=== PATIENT | female | born 1985 | race Caucasian/White ===

== ENCOUNTER 2018-06-15 18:12 | Emergency (ER) | payer MEDICARE, MEDICAID ==
[~2018-06-15] VITALS: Ht 154.9 cm; Wt 56.2 kg
--- NOTE | ~2018-06-15 | EKG ---
[place], [place] ELECTROCARDIOGRAM REPORT NAME: KAM MCGRATH UNIT #: [id number] ROOM: DOCTOR: EPIPHANY DRAFT REPORT BIRTHDATE: [birth year] [facility] Test Date: 2018-06-15 Test Time: 18:42:17 Pat Name: KAM MCGRATH Department: ER Room: 17 Gender: F Stereo Equipment Installer: Heena Mcpherson : 1985 Requested By: KAYLIN LÓPEZ PA-C Order Number: [id number] Reading MD: Spencer Black MD Measurements Intervals [place] Rate: 68 P: 31 [place]: 143 QRS: 30 QRSD: 82 T: 32 QT: 429 QTc: 457 Interpretive Statements Sinus rhythm Nonspecific ST T changes Electronically Signed On 06-19-2018 9:07:13 PDT by Spencer Black MD CM:EKGRPT:ELECTROCARDIOGRAM REPORT [id number] KAYLIN LÓPEZ PA-C EPIPHANY DRAFT REPORT KAYLIN LÓPEZ PA-C
[~2018-06-15 18:12] MED LIST: ANUSOL-HC25 MG RC; AUGMENTIN 875875 MG PO; BACTRIM DS 8001 TA1 PO; BENADRYL25 MG PO; DICYCLOMINE HCL20 MG PO; FLAGYL500 MG PO; GYNE-LOTRIMIN 31 KIT VG; HYDROCODONE BIT1 T11 PO; MACROBID100 M1 PO; Miralax Powder255 GM PO; NICOTINE T21 MG/24 H T; NKHM; NYSTATIN OINTME30 GM; ONDANSETRON HYDR4 M1 PO; ONDANSETRON4 MG PO; OXYBUTYNIN5 MG PO; PHENYTOIN SODI100 M3 PO; PYRIDIUM200 MG PO; ROBAXIN750 MG PO; SINEMET 25-100M1 TAB PO; Septra Ds 800 M1 TAB PO; THERA1 TAB PO; VIBRAMYCIN100 MG PO; VICODIN 5/500 505 MG PO; VISTARIL50 MG PO; ZITHROMAX Z PA250 MG; ZOFRAN ODT4 MG SL; Zofran4 MG PO
[2018-06-15 18:48] LABS: BASO % 0.5 % (0.0-1.0); EOS # 0.1 10*3/uL (0.0-0.4); EOS % 1.1 % (1.0-4.0); HEMOGLOBIN 14.2 g/dl (12.0-16.0); LYMPH # 1.5 10*3/uL (1.3-4.4); LYMPH % 17.2 % (27.0-41.0); MEAN CELL VOLUME 95.5 fl (81.0-99.0); MEAN CORPUSCULAR HGB 32.3 pg (27.0-31.0); MEAN CORPUSCULAR HGB CONC 33.8 g/dl (33.0-37.0); MEAN PLATELET VOLUME 9.4 fl (9.6-12.3); MONO # 0.5 10*3/uL (0.1-1.0); MONO % 5.3 % (3.0-9.0); NEUT # 6.4 10*3/uL (2.3-7.9); NEUT % 75.5 % (47.0-73.0); PLATELET COUNT AUTOMATED 214 10*3/uL (130-400); RED CELL DISTRI WIDTH 11.9 % (0-14.5); WHITE BLOOD COUNT 8.5 10*3/uL (4.8-10.8)
[2018-06-15 18:53] LABS: BILIRUBIN NEGATIVE (NEGATIVE); BLOOD TRACE-LYSED (NEGATIVE); CLARITY CLEAR (CLEAR); COLOR YELLOW (YELLOW); GLUCOSE NEGATIVE (NEGATIVE); KETONE NEGATIVE (NEGATIVE); LEUKO ESTERASE NEGATIVE (NEGATIVE); NITRITE NEGATIVE (NEGATIVE); SPECIFIC GRAVITY 1.015 (1.005-1.030)
[2018-06-15 18:58] LABS: ACT PARTIAL THROMBO TIME 22.1 SECONDS (20.8-31.5)
[2018-06-15 19:04] LABS: URINE AMPHETAMINES < 1000 (1000ng/ml); URINE BARBITURATES < 200 (200ng/ml); URINE BENZODIAZEPINES < 200 (200ng/ml); URINE CANNABINOIDS (THC) < 50 (50ng/ml); URINE COCAINE < 300 (300ng/ml); URINE METHADONE < 300 (300ng/ml); URINE OPIATES < 300 (300ng/ml)
[2018-06-15 19:06] LABS: ALKALINE PHOSPHATASE 53 U/L (45-117); BUN 10 mg/dl (7-24); CHLORIDE 110 mmol/L (98-107); CREATININE 0.67 mg/dL (0.55-1.02); LIPASE 109 U/L (73-393); POTASSIUM 3.8 mmol/L (3.5-5.1); SGOT/AST 19 IU/L (3-35); SGPT/ALT 25 U/L (12-78); SODIUM 143 mmol/L (136-145); TOTAL PROTEIN 7.7 gm/dL (6.4-8.2)
[2018-06-15 19:09] LABS: URINE PHENCYCLIDINE < 25 (25ng/ml)
[2018-06-15 19:09] LABS: TROPONIN I < 0.015 ng/ml (<0.045)
[2018-06-15 19:24] LABS: BACTERIA 3+; RBC 0-2 rbc/hpf (0-2)
[2018-06-15] MEDS ORDERED: ZOFRAN ODT4 MG SL (20:44)
[2018-06-15] MEDS ORDERED: MIRALAX POWDER17 G1 PO (20:44)
== END 2018-06-15 20:53 | disposition home or self-care (01) ==
LOC: ED 18:12
PROVIDERS: Physician Assistant
DX: K59.00 Constipation, unspecified (principal); R11.2 Nausea with vomiting, unspecified; R42 Dizziness and giddiness; J45.909 Unspecified asthma, uncomplicated; G40.909 Epilepsy, unspecified, not intractable, without status epilepticus; F17.200 Nicotine dependence, unspecified, uncomplicated; Z88.8 Allergy status to other drugs, medicaments and biological substances; Z88.6 Allergy status to analgesic agent; Z98.51 Tubal ligation status

== ENCOUNTER 2018-07-24 19:21 | Emergency (ER) | payer MEDICARE, MEDICAID ==
[~2018-07-24] VITALS: Ht 160 cm; Wt 52.6 kg
[~2018-07-24 19:21] MED LIST changes: +MIRALAX POWDER17 G1 PO
[2018-07-24 19:47] LABS: BILIRUBIN NEGATIVE (NEGATIVE); BLOOD NEGATIVE (NEGATIVE); CLARITY SL CLOUDY (CLEAR); COLOR YELLOW (YELLOW); GLUCOSE TRACE (NEGATIVE); KETONE NEGATIVE (NEGATIVE); LEUKO ESTERASE NEGATIVE (NEGATIVE); NITRITE POSITIVE (NEGATIVE); UROBILINOGEN >= 8.0 E.U./dl (0.2-1.0)
[2018-07-24 20:02] LABS: BACTERIA 2+; EPITHELIAL CELLS 20-25; RBC 0-2 rbc/hpf (0-2)
[2018-07-24] MEDS ORDERED: CIPRO250 MG PO (20:03)
[2018-07-24] MEDS ORDERED: FLAGYL500 MG PO (20:03)
[2018-07-24] MEDS ORDERED: PYRIDIUM200 M1 PO (20:13)
[2018-07-24] MEDS ORDERED: CEFUROXIME AXE500 MG PO (20:13)
== END 2018-07-24 20:28 | disposition home or self-care (01) ==
LOC: ED 19:21
PROVIDERS: Nurse Practitioner Family
DX: N39.0 Urinary tract infection, site not specified (principal); F17.200 Nicotine dependence, unspecified, uncomplicated; Z88.8 Allergy status to other drugs, medicaments and biological substances

== ENCOUNTER 2019-04-20 16:44 | Inpatient (IN) | payer MEDICARE, MEDICAID ==
[~2019-04-20] VITALS: Ht 154.9 cm; Wt 53.7 kg
[2019-04-20 16:44] VITALS: BP 121/80
[~2019-04-20 16:44] MED LIST changes: +CEFUROXIME AXE500 MG PO; +CIPRO250 MG PO; +PYRIDIUM200 M1 PO
--- NOTE | 2019-04-20 17:31 | NUR ---
SEVERAL ATTEMPTS MADE FOR IV ACCESS AND LAB DRAW BY MORE THAN ONE NURSE AND ONE NATIONAL BUSINESS DIRECTOR . VALERIY COKER AND LAB AT BEDSIDE AT THIS TIME.
--- NOTE | 2019-04-20 17:34 | NUR ---
WILLIE B[place]INGHAM AWARE OF DIFFICULTY OBTAINING IV ACCESS AND LABS.
[2019-04-20 17:52] LABS: BASO % 0.6 % (0.0-1.0); EOS # 0.2 10*3/uL (0.0-0.4); EOS % 3.2 % (1.0-4.0); HEMATOCRIT 43.5 % (37.0-47.0); HEMOGLOBIN 14.6 g/dl (12.0-16.0); LYMPH # 1.9 10*3/uL (1.3-4.4); MEAN CELL VOLUME 95.2 fl (81.0-99.0); MEAN CORPUSCULAR HGB 31.9 pg (27.0-31.0); MEAN CORPUSCULAR HGB CONC 33.6 g/dl (33.0-37.0); MONO # 0.4 10*3/uL (0.1-1.0); MONO % 8.1 % (3.0-9.0); NEUT # 2.5 10*3/uL (2.3-7.9); NEUT % 50.1 % (47.0-73.0); PLATELET COUNT AUTOMATED 220 10*3/uL (130-400); RED BLOOD COUNT 4.57 10*6/uL (4.10-5.10); RED CELL DISTRI WIDTH 11.6 % (0-14.5); WHITE BLOOD COUNT 5.1 10*3/uL (4.8-10.8)
[2019-04-20 18:05] LABS: ACT PARTIAL THROMBO TIME 25.7 SECONDS (20.0-32.1)
[2019-04-20 18:12] LABS: ALBUMIN 3.9 gm/dl (3.1-4.5); ALKALINE PHOSPHATASE 53 U/L (45-117); BUN 7 mg/dl (7-24); CHLORIDE 106 mmol/L (98-107); CREATININE 0.71 mg/dL (0.55-1.02); LIPASE 72 U/L (73-393); POTASSIUM 4.1 mmol/L (3.5-5.1); SGOT/AST 30 IU/L (3-35); SGPT/ALT 26 U/L (12-78); SODIUM 139 mmol/L (136-145); TOTAL PROTEIN 7.8 gm/dL (6.4-8.2)
--- NOTE | 2019-04-20 18:22 | NUR ---
WILLIE DNP AWARE OF LA 2.3
[2019-04-20 18:36] LABS: BILIRUBIN NEGATIVE (NEGATIVE); BLOOD NEGATIVE (NEGATIVE); CLARITY CLEAR (CLEAR); COLOR YELLOW (YELLOW); GLUCOSE NEGATIVE (NEGATIVE); KETONE TRACE (NEGATIVE); LEUKO ESTERASE NEGATIVE (NEGATIVE); NITRITE NEGATIVE (NEGATIVE); PH 6.5 (5.0-9.0); SPECIFIC GRAVITY <= 1.005 (1.005-1.030); UROBILINOGEN 0.2 E.U./dl (0.2-1.0)
[2019-04-20 18:57] LABS: EPITHELIAL CELLS 51-100; WBC 0-2 wbc/hpf (0-5)
[2019-04-20 18:58] LABS: BACTERIA TRACE
[2019-04-20 19:19] LABS: URINE AMPHETAMINES < 1000 (1000ng/ml); URINE BARBITURATES < 200 (200ng/ml); URINE BENZODIAZEPINES < 200 (200ng/ml); URINE CANNABINOIDS (THC) < 50 (50ng/ml); URINE COCAINE < 300 (300ng/ml); URINE METHADONE < 300 (300ng/ml); URINE OPIATES < 300 (300ng/ml)
[2019-04-20 19:26] LABS: URINE PHENCYCLIDINE < 25 (25ng/ml)
[2019-04-20 20:55] VITALS: BP 110/73
--- NOTE | 2019-04-20 20:55 | NUR ---
REPORT RECEIVED FROMPETER LUONG [facility].
--- NOTE | 2019-04-20 20:55 | NUR ---
Time: 2054 A 33 year old FEMALE admitted to 5E under services of NEVAEH WEBB DO. Pt. arrived via wheel chair from ER. Chief complaint: NAUSEA AND VOMITING. AG HALL
--- NOTE | 2019-04-20 21:46 | NUR ---
SPOKE WITH DR CUEVAS ABOUT PATIENTS REQUEST FOR BENADRYL. WAITING FOR ORDERS AT THIS TIME.
--- NOTE | 2019-04-20 22:42 | NUR ---
PATIENT REQUESTING MEDICATION TO HELP HER SLEEP. RESTORIL ADMINISTERED PRESCRIBED. WILL MONITOR FOR EFFECTIVENESS.
--- NOTE | 2019-04-20 22:45 | NUR ---
PATIENT REFUSES TO DRINK ORAL CONTRAST FOR CT ABDOMEN/PELVIS.
--- NOTE | 2019-04-20 22:50 | NUR ---
DR CUEVAS CALLED, AWARE THAT PATIENT REFUSES TO DRINK ORAL CONTRAST FOR CT. "OK TO GET BEST STUDY WITH IV CONTRAST." WILL FOLLOW UP WITH FIRE EXTINGUISHER REPAIRER INSPECTOR.
--- NOTE | 2019-04-20 22:56 | NUR ---
CALLED RIM FIRE PRIMING OPERATOR AND MADE AWARE THAT PATIENT REFUSING ORAL CONTRAST AND THAT IV CONTRAST IS OK. WILL CALL WHEN READY.
--- NOTE | 2019-04-20 23:42 | NUR ---
PATIENT RESTING WITH EYES CLOSED. RESPITATIONS EASY AND UNLABORED ON ROOM AIR. CALL WANG WITHIN REACH.
--- NOTE | 2019-04-20 23:50 | NUR ---
PATIENT ESCORTED TO CT SCAN. PATIENT REFUSES TO HAVE CT SCAN DONE- DR CUVEAS AWARE.
[2019-04-21] VITALS: BP 107/66
--- NOTE | 2019-04-21 04:00 | NUR ---
24 HR chart check completed.
--- NOTE | 2019-04-21 04:46 | NUR ---
PATIENT RESTING WITH EYES CLOSED. RESPIRATIONS EASY AND UNLABORED ON ROOM AIR. BED LOCKED IN LOWEST POSITION. CALL WANG WITHIN REACH.
--- NOTE | 2019-04-21 06:13 | NUR ---
PATIENT C/O NAUSEA. ZOFRAN ADMINISTERED PRESCRIBED. WILL MONITOR FOR EFFECTIVENESS.
[2019-04-21 06:31] LABS: BASO % 0.7 % (0.0-1.0); EOS # 0.2 10*3/uL (0.0-0.4); EOS % 3.7 % (1.0-4.0); HEMATOCRIT 37.7 % (37.0-47.0); HEMOGLOBIN 12.6 g/dl (12.0-16.0); LYMPH # 2.2 10*3/uL (1.3-4.4); MEAN CELL VOLUME 93.5 fl (81.0-99.0); MEAN CORPUSCULAR HGB 31.3 pg (27.0-31.0); MEAN CORPUSCULAR HGB CONC 33.4 g/dl (33.0-37.0); MEAN PLATELET VOLUME 10.1 fl (9.6-12.3); MONO # 0.4 10*3/uL (0.1-1.0); MONO % 8.8 % (3.0-9.0); NEUT # 1.8 10*3/uL (2.3-7.9); NEUT % 38.6 % (47.0-73.0); PLATELET COUNT AUTOMATED 194 10*3/uL (130-400); RED BLOOD COUNT 4.03 10*6/uL (4.10-5.10); RED CELL DISTRI WIDTH 11.5 % (0-14.5); WHITE BLOOD COUNT 4.6 10*3/uL (4.8-10.8)
[2019-04-21 06:48] LABS: INTERNATIONAL NORM RATIO 1.1 (2.0-3.5)
[2019-04-21 06:59] LABS: ALBUMIN 3.2 gm/dl (3.1-4.5); BUN 6 mg/dl (7-24); CHLORIDE 112 mmol/L (98-107); CHOLESTEROL 115 mg/dL (<200); CREATININE 0.55 mg/dL (0.55-1.02); PHOSPHOROUS 2.9 mg/dL (2.5-4.9); POTASSIUM 3.4 mmol/L (3.5-5.1); SGOT/AST 17 IU/L (3-35); SGPT/ALT 21 U/L (12-78); SODIUM 144 mmol/L (136-145); TOTAL PROTEIN 6.1 gm/dL (6.4-8.2); TRIGLYCERIDES 49 mg/dl (<150); VLDL CHOLESTEROL 10 mg/dL (6-40)
[2019-04-21 07:05] LABS: ALKALINE PHOSPHATASE 45 U/L (45-117); HDL CHOLESTEROL 38 mg/dl (40-60); LDL CHOLESTEROL 67 mg/dL (9-159)
[2019-04-21 07:06] LABS: BETA-HCG, QUANT < 1.0 mIU/mL (1-3)
[2019-04-21 07:19] LABS: VITAMIN D, 25-HYDROXY 42.7 ng/mL (30-100)
--- NOTE | 2019-04-21 07:40 | NUR ---
NEW CONSULT CALLED TO DR CONNOLLY. NEW ORDER RECEIVED FOR PATIENT TO BE NPO, US ABDOMEN AND PELVIS AND CALL HIM WITH RESULTS WHEN COMPLETED.
[2019-04-21 08:00] VITALS: BP 98/60
[2019-04-21] MEDS ORDERED: KLONOPIN0.5 MG PO (09:44)
[2019-04-21] MEDS ORDERED: NEURONTIN800 MG PO (09:45)
--- NOTE | 2019-04-21 10:39 | NUR ---
MEDICATED WITH PO KLONOPIN ORDERED PER PT REQUEST FOR C/O ANXIETY.
--- NOTE | 2019-04-21 10:40 | NUR ---
MEDICATED WITH IV ZOFRAN ORDERED PER PT REQUEST FOR C/O NAUSEA.
[2019-04-21 12:00] VITALS: BP 105/69
--- NOTE | 2019-04-21 12:38 | NUR ---
MEDICATED WITH PO TYLENOL ORDERED PER PT REQUEST FOR C/O HEADACHE RATED 5/10. MEDICATION EFFECTIVE FOR NAUSEA AND ANXIETY.
--- NOTE | 2019-04-21 14:30 | NUR ---
DR WEBSTER ASKED ABOUT PT EATING SOLID FOOD PER HER REQUEST, BUT HE'S WANTING TO WAIT FOR US RESULT. RN CALLED RADIOLOGY...THEY ARE UNSURE WHEN THE US WILL BE READ. PT INFORMED OF RATIONALE, BUT REMAINS FLAT AND UNHAPPY. SHE STATES SHE MAY DECIDE TO LEAVE. DR WEBSTER AWARE.
[2019-04-21 16:00] VITALS: BP 111/71
--- NOTE | 2019-04-21 16:00 | NUR ---
MEDICATION EFFECTIVE FOR HEADACHE.
--- NOTE | 2019-04-21 18:48 | NUR ---
MEDICATED WITH PO BENEDRYL ORDERED PER PT REQUEST FOR C/O ANXIETY.
[2019-04-21 20:00] VITALS: BP 94/59
--- NOTE | 2019-04-21 21:37 | NUR ---
PATIENT REQUESTING MEDICATION FOR SLEEP. RESTORIL ADMINISTERED PRESCRIBED. WILL MONITOR FOR EFFECTIVENESS.
--- NOTE | 2019-04-21 22:37 | NUR ---
PATIENT RESTING WITH EYES CLOSED AT THIS TIME. BED LOCKED IN LOWEST POSITION. CALL LIGHT WITHIN REACH.
[2019-04-22] VITALS: BP 89/52; BP 98/56
[2019-04-22 07:02] LABS: BASO % 0.4 % (0.0-1.0); EOS # 0.2 10*3/uL (0.0-0.4); EOS % 3.3 % (1.0-4.0); HEMATOCRIT 40.4 % (37.0-47.0); HEMOGLOBIN 13.3 g/dl (12.0-16.0); LYMPH # 1.5 10*3/uL (1.3-4.4); LYMPH % 31.7 % (27.0-41.0); MEAN CELL VOLUME 94.8 fl (81.0-99.0); MEAN CORPUSCULAR HGB 31.2 pg (27.0-31.0); MEAN CORPUSCULAR HGB CONC 32.9 g/dl (33.0-37.0); MEAN PLATELET VOLUME 10.1 fl (9.6-12.3); MONO # 0.4 10*3/uL (0.1-1.0); MONO % 8.5 % (3.0-9.0); NEUT # 2.7 10*3/uL (2.3-7.9); NEUT % 55.9 % (47.0-73.0); PLATELET COUNT AUTOMATED 201 10*3/uL (130-400); RED BLOOD COUNT 4.26 10*6/uL (4.10-5.10); RED CELL DISTRI WIDTH 11.7 % (0-14.5); WHITE BLOOD COUNT 4.8 10*3/uL (4.8-10.8)
[2019-04-22 07:29] LABS: BUN 6 mg/dl (7-24); CHLORIDE 112 mmol/L (98-107); CREATININE 0.63 mg/dL (0.55-1.02); POTASSIUM 3.4 mmol/L (3.5-5.1); SODIUM 143 mmol/L (136-145)
--- NOTE | 2019-04-22 07:47 | NUR ---
24 HR chart check completed.
[2019-04-22 08:00] VITALS: BP 108/78
--- NOTE | 2019-04-22 08:00 | NUR ---
APPEARS IN NO DISTRESS. PT IS ASKING FOR NEURONTIN, KLONOPIN AND A SHOWER.
--- NOTE | 2019-04-22 11:08 | NUR ---
MEDICATED WITH PO TYLENOL ORDERED PER PT REQUEST FOR C/O HEADACHE RATED 5/10.
[2019-04-22] MEDS ORDERED: ZOFRAN4 MG PO (11:34)
[2019-04-22] MEDS ORDERED: NEURONTIN800 MG PO (11:34)
--- NOTE | 2019-04-22 12:02 | NUR ---
MEDICATED WITH IV ZOFRAN ORDERED PER PT REQUEST FOR C/O NASUEA.
--- NOTE | 2019-04-22 12:58 | NUR ---
LEAVING IN CARE OF BOYFRIEND, AMBULATORY. MEDICATION EFFECTIVE FOR NAUSEA. PT ATE/SHOWERED.
== END 2019-04-22 12:58 | disposition home or self-care (01) | DRG 392 ==
LOC: ED 16:44 → EDHOLD 20:26 → 5E 20:44
PROVIDERS: Internal Medicine; Nurse Practitioner Family; Student in an Organized Health Care Education/Training Program; ADMIT Emergency Medicine
DX: K52.9 Noninfective gastroenteritis and colitis, unspecified (principal); E87.2 Acidosis; R00.1 Bradycardia, unspecified; F17.210 Nicotine dependence, cigarettes, uncomplicated; E87.6 Hypokalemia; E87.8 Other disorders of electrolyte and fluid balance, not elsewhere classified; F31.9 Bipolar disorder, unspecified; G40.909 Epilepsy, unspecified, not intractable, without status epilepticus; F43.10 Post-traumatic stress disorder, unspecified; B19.20 Unspecified viral hepatitis C without hepatic coma; Z98.891 History of uterine scar from previous surgery; Z98.51 Tubal ligation status; Z88.8 Allergy status to other drugs, medicaments and biological substances; Z71.6 Tobacco abuse counseling; Z82.49 Family history of ischemic heart disease and other diseases of the circulatory system; Z84.89 Family history of other specified conditions

== ENCOUNTER 2019-04-24 17:41 | Emergency (ER) | payer MEDICARE, MEDICAID ==
[~2019-04-24] VITALS: Ht 160 cm; Wt 54.4 kg
[~2019-04-24 17:41] MED LIST changes: +KLONOPIN0.5 MG PO; +NEURONTIN800 MG PO; +ZOFRAN4 MG PO
[2019-04-24 18:21] LABS: BILIRUBIN NEGATIVE (NEGATIVE); BLOOD NEGATIVE (NEGATIVE); CLARITY SL CLOUDY (CLEAR); GLUCOSE TRACE (NEGATIVE); KETONE NEGATIVE (NEGATIVE); LEUKO ESTERASE NEGATIVE (NEGATIVE); NITRITE POSITIVE (NEGATIVE); PH 7.5 (5.0-9.0)
[2019-04-24 18:35] LABS: COLOR YELLOW (YELLOW)
[2019-04-24 18:37] LABS: BACTERIA 1+; EPITHELIAL CELLS 21-30
[2019-04-24] MEDS ORDERED: CEFUROXIME AXE500 MG PO (18:51)
[2019-04-24] MEDS ORDERED: PYRIDIUM200 M1 PO (18:51)
== END 2019-04-24 18:58 | disposition home or self-care (01) ==
LOC: ED 17:41
PROVIDERS: Nurse Practitioner Family
DX: N39.0 Urinary tract infection, site not specified (principal); F17.200 Nicotine dependence, unspecified, uncomplicated; Z88.8 Allergy status to other drugs, medicaments and biological substances

== ENCOUNTER 2019-05-08 13:59 | Emergency (ER) | payer MEDICARE, MEDICAID ==
[~2019-05-08] VITALS: Ht 157.4 cm; Wt 54.4 kg
[2019-05-08 14:54] LABS: BASO % 0.6 % (0.0-1.0); EOS # 0.1 10*3/uL (0.0-0.4); EOS % 1.4 % (1.0-4.0); HEMATOCRIT 43.7 % (37.0-47.0); HEMOGLOBIN 15.1 g/dl (12.0-16.0); LYMPH # 1.6 10*3/uL (1.3-4.4); MEAN CORPUSCULAR HGB 31.8 pg (27.0-31.0); MEAN CORPUSCULAR HGB CONC 34.6 g/dl (33.0-37.0); MEAN PLATELET VOLUME 9.1 fl (9.6-12.3); MONO # 0.5 10*3/uL (0.1-1.0); MONO % 7.2 % (3.0-9.0); NEUT # 4.7 10*3/uL (2.3-7.9); NEUT % 67.5 % (47.0-73.0); PLATELET COUNT AUTOMATED 242 10*3/uL (130-400); RED BLOOD COUNT 4.75 10*6/uL (4.10-5.10); RED CELL DISTRI WIDTH 11.9 % (0-14.5)
[2019-05-08 15:09] LABS: ALBUMIN 4.3 gm/dl (3.1-4.5); ALKALINE PHOSPHATASE 72 U/L (45-117); BUN 9 mg/dl (7-24); CHLORIDE 103 mmol/L (98-107); CREATININE 0.64 mg/dL (0.55-1.02); LIPASE 91 U/L (73-393); POTASSIUM 3.7 mmol/L (3.5-5.1); SGOT/AST 13 IU/L (3-35); SGPT/ALT 22 U/L (12-78); SODIUM 136 mmol/L (136-145); TOTAL PROTEIN 8.4 gm/dL (6.4-8.2)
[2019-05-08] MEDS ORDERED: PROAIR HFA8.5 GM INH (16:16)
[2019-05-08] MEDS ORDERED: ZOFRAN4 MG PO (16:16)
[2019-05-08] MEDS ORDERED: MEDROL DOSEPAK4 MG PO (16:16)
[2019-05-08] MEDS ORDERED: AUGMENTIN 875-875 MG PO (16:16)
== END 2019-05-08 16:23 | disposition home or self-care (01) ==
LOC: ED 13:59
PROVIDERS: Nurse Practitioner Family
DX: H66.93 Otitis media, unspecified, bilateral (principal); J40 Bronchitis, not specified as acute or chronic; F41.9 Anxiety disorder, unspecified; G40.909 Epilepsy, unspecified, not intractable, without status epilepticus; F31.9 Bipolar disorder, unspecified; F17.210 Nicotine dependence, cigarettes, uncomplicated; Z88.8 Allergy status to other drugs, medicaments and biological substances; Z79.2 Long term (current) use of antibiotics; Z79.899 Other long term (current) drug therapy

== ENCOUNTER 2019-05-21 14:02 | Emergency (ER) | payer MEDICARE, MEDICAID ==
[~2019-05-21] VITALS: Ht 154.9 cm; Wt 54.4 kg
[~2019-05-21 14:02] MED LIST changes: +AUGMENTIN 875-875 MG PO; +MEDROL DOSEPAK4 MG PO; +PROAIR HFA8.5 GM INH
== END 2019-05-21 14:38 | disposition home or self-care (01) ==
LOC: ED 14:02
DX: F41.9 Anxiety disorder, unspecified (principal); Z76.0 Encounter for issue of repeat prescription; F17.200 Nicotine dependence, unspecified, uncomplicated; Z88.8 Allergy status to other drugs, medicaments and biological substances; Z79.2 Long term (current) use of antibiotics; Z79.899 Other long term (current) drug therapy

== ENCOUNTER 2019-06-08 16:03 | Emergency (ER) | payer MEDICARE, MEDICAID ==
[~2019-06-08] VITALS: Ht 154.9 cm; Wt 54.4 kg
[2019-06-08 17:15] LABS: BASO % 0.4 % (0.0-1.0); EOS % 0.6 % (1.0-4.0); HEMATOCRIT 43.3 % (37.0-47.0); HEMOGLOBIN 14.5 g/dl (12.0-16.0); LYMPH # 1.6 10*3/uL (1.3-4.4); LYMPH % 21.8 % (27.0-41.0); MEAN CELL VOLUME 93.9 fl (81.0-99.0); MEAN CORPUSCULAR HGB 31.5 pg (27.0-31.0); MEAN CORPUSCULAR HGB CONC 33.5 g/dl (33.0-37.0); MEAN PLATELET VOLUME 8.9 fl (9.6-12.3); MONO # 0.6 10*3/uL (0.1-1.0); MONO % 7.9 % (3.0-9.0); NEUT # 4.9 10*3/uL (2.3-7.9); NEUT % 68.9 % (47.0-73.0); PLATELET COUNT AUTOMATED 306 10*3/uL (130-400); RED BLOOD COUNT 4.61 10*6/uL (4.10-5.10); RED CELL DISTRI WIDTH 12.7 % (0-14.5); WHITE BLOOD COUNT 7.2 10*3/uL (4.8-10.8)
[2019-06-08 17:30] LABS: BILIRUBIN NEGATIVE (NEGATIVE); BLOOD NEGATIVE (NEGATIVE); CLARITY CLEAR (CLEAR); COLOR YELLOW (YELLOW); GLUCOSE NEGATIVE (NEGATIVE); KETONE NEGATIVE (NEGATIVE); LEUKO ESTERASE NEGATIVE (NEGATIVE); NITRITE NEGATIVE (NEGATIVE); PH 6.5 (5.0-9.0); SPECIFIC GRAVITY <= 1.005 (1.005-1.030); UROBILINOGEN 0.2 E.U./dl (0.2-1.0)
[2019-06-08 17:32] LABS: ALBUMIN 4.1 gm/dl (3.1-4.5); ALKALINE PHOSPHATASE 71 U/L (45-117); CHLORIDE 104 mmol/L (98-107); CREATININE 0.73 mg/dL (0.55-1.02); LIPASE 71 U/L (73-393); POTASSIUM 4.1 mmol/L (3.5-5.1); SGOT/AST 47 IU/L (3-35); SGPT/ALT 105 U/L (12-78); SODIUM 138 mmol/L (136-145); TOTAL PROTEIN 8.1 gm/dL (6.4-8.2)
[2019-06-08 17:36] LABS: BUN 9 mg/dl (7-24)
[2019-06-08 17:36] LABS: URINE AMPHETAMINES < 1000 (1000ng/ml); URINE BARBITURATES < 200 (200ng/ml); URINE BENZODIAZEPINES > 200 (200ng/ml); URINE CANNABINOIDS (THC) < 50 (50ng/ml); URINE COCAINE < 300 (300ng/ml); URINE METHADONE < 300 (300ng/ml); URINE OPIATES < 300 (300ng/ml)
[2019-06-08 17:38] LABS: URINE PHENCYCLIDINE < 25 (25ng/ml)
[2019-06-08 17:54] LABS: BACTERIA 1+; WBC 0-2 wbc/hpf (0-5)
[2019-06-08 18:00] LABS: ACETAMINOPHEN (TYLENOL) < 10.0 ug/ml (10-30); ETHYL ALCOHOL < 3.0 mg/dl (<3)
[2019-06-08] MEDS ORDERED: ATIVAN1 MG PO (18:22)
== END 2019-06-08 18:28 | disposition home or self-care (01) ==
LOC: ED 16:03
PROVIDERS: Physician Assistant
DX: F41.9 Anxiety disorder, unspecified (principal); R11.10 Vomiting, unspecified; R06.02 Shortness of breath; F17.200 Nicotine dependence, unspecified, uncomplicated; Z32.02 Encounter for pregnancy test, result negative; Z88.8 Allergy status to other drugs, medicaments and biological substances; Z79.899 Other long term (current) drug therapy; Z79.2 Long term (current) use of antibiotics

== ENCOUNTER 2019-06-10 14:21 | Emergency (ER) | payer MEDICARE, MEDICAID ==
[~2019-06-10] VITALS: Ht 154.9 cm; Wt 54.4 kg
[~2019-06-10 14:21] MED LIST changes: +ATIVAN1 MG PO
[2019-06-10] MEDS ORDERED: ATIVAN1 MG PO (16:54)
== END 2019-06-10 16:58 | disposition home or self-care (01) ==
LOC: ED 14:21
DX: F41.9 Anxiety disorder, unspecified (principal); F17.200 Nicotine dependence, unspecified, uncomplicated; Z88.8 Allergy status to other drugs, medicaments and biological substances; Z79.2 Long term (current) use of antibiotics; Z79.899 Other long term (current) drug therapy

== ENCOUNTER 2019-06-12 11:53 | Inpatient (IN) | payer MEDICARE, MEDICAID ==
[~2019-06-12] VITALS: Ht 154.9 cm; Wt 52.6 kg
--- NOTE | 2019-06-12 13:28 | NUR ---
PATIENT MEETS [facility]. CINA=16. PATIENT WANTS TO FOLLOW UP WITH ON DEMAND FOR HER AFTERCARE PLAN. MERVIN CAIN B.A. SEVERITY OF ILLNESS COORDINATOR
[2019-06-12 13:29] VITALS: BP 105/71
--- NOTE | 2019-06-12 13:35 | NUR ---
33 year old FEMALE admitted to room # 402-2 for stabilization. Reports an addiction to HEROIN last used 8 hours prior to admission. Compliant with admission procedure. See assessment forms for additional information about patient status.
--- NOTE | 2019-06-12 13:35 | NUR ---
[facility] CALLED AND MED REC UPDATED WITH PHARMACIST.
[2019-06-12] MEDS ORDERED: SEROQUEL25 MG PO (13:38)
[2019-06-12] MEDS ORDERED: VALIUM5 MG PO (13:39)
[2019-06-12] MEDS ORDERED: NEURONTIN600 MG PO (13:40)
--- NOTE | 2019-06-12 13:41 | NUR ---
DR BROWN NOTIFIED OF UPDATED MED REC AND PT REQUEST FOR NICOTINE INHALER.
--- NOTE | 2019-06-12 14:31 | NUR ---
[facility] ALICE CALLED AND NOTIFIED OF DR CEDRIC AUGUSTIN.
[2019-06-12 14:39] LABS: BASO % 0.5 % (0.0-1.0); EOS # 0.1 10*3/uL (0.0-0.4); EOS % 0.8 % (1.0-4.0); HEMOGLOBIN 15.5 g/dl (12.0-16.0); LYMPH # 1.6 10*3/uL (1.3-4.4); LYMPH % 24.4 % (27.0-41.0); MEAN CELL VOLUME 93.7 fl (81.0-99.0); MEAN CORPUSCULAR HGB 31.6 pg (27.0-31.0); MEAN CORPUSCULAR HGB CONC 33.7 g/dl (33.0-37.0); MONO # 0.4 10*3/uL (0.1-1.0); MONO % 6.1 % (3.0-9.0); NEUT # 4.5 10*3/uL (2.3-7.9); NEUT % 67.9 % (47.0-73.0); PLATELET COUNT AUTOMATED 337 10*3/uL (130-400); RED BLOOD COUNT 4.91 10*6/uL (4.10-5.10); RED CELL DISTRI WIDTH 12.4 % (0-14.5); WHITE BLOOD COUNT 6.6 10*3/uL (4.8-10.8)
[2019-06-12 14:40] LABS: BILIRUBIN NEGATIVE (NEGATIVE); BLOOD NEGATIVE (NEGATIVE); CLARITY SL CLOUDY (CLEAR); COLOR YELLOW (YELLOW); GLUCOSE NEGATIVE (NEGATIVE); KETONE NEGATIVE (NEGATIVE); LEUKO ESTERASE NEGATIVE (NEGATIVE); NITRITE NEGATIVE (NEGATIVE); PH 7.5 (5.0-9.0); SPECIFIC GRAVITY 1.015 (1.005-1.030)
[2019-06-12 14:44] LABS: BACTERIA 2+
[2019-06-12 14:45] LABS: MUCOUS 1+
[2019-06-12 14:54] LABS: URINE AMPHETAMINES < 1000 (1000ng/ml); URINE BARBITURATES < 200 (200ng/ml); URINE BENZODIAZEPINES > 200 (200ng/ml); URINE CANNABINOIDS (THC) < 50 (50ng/ml); URINE COCAINE < 300 (300ng/ml); URINE METHADONE < 300 (300ng/ml); URINE OPIATES < 300 (300ng/ml)
[2019-06-12 14:55] LABS: ALBUMIN 4.4 gm/dl (3.1-4.5); ALKALINE PHOSPHATASE 77 U/L (45-117); BUN 9 mg/dl (7-24); CHLORIDE 105 mmol/L (98-107); CREATININE 0.73 mg/dL (0.55-1.02); POTASSIUM 4.1 mmol/L (3.5-5.1); SGOT/AST 48 IU/L (3-35); SGPT/ALT 85 U/L (12-78); SODIUM 138 mmol/L (136-145); TOTAL PROTEIN 8.6 gm/dL (6.4-8.2)
[2019-06-12 14:56] LABS: URINE PHENCYCLIDINE < 25 (25ng/ml)
[2019-06-12 14:57] LABS: ETHYL ALCOHOL < 3.0 mg/dl (<3)
--- NOTE | 2019-06-12 15:28 | NUR ---
STAFF SMELLED SMOKE WELL PT'S ROOMATE. TONI, DIRECTOR OF INPATIENT SERVICES AT [facility] DECK AND NOTIFIED. SECURITY AND TONI WENT TO ROOM TO SEE PT. PT DECIDED TO LEAVE [place]. DR BROWN CALLED AND NOTIFIED. TONI CALLED AND NOTIFIED [facility].
== END 2019-06-12 15:28 | disposition left against medical advice (07) | DRG 894 ==
LOC: 4E 11:53
PROVIDERS: Internal Medicine; ADMIT Family Medicine
DX: F11.23 Opioid dependence with withdrawal (principal); G40.909 Epilepsy, unspecified, not intractable, without status epilepticus; F41.9 Anxiety disorder, unspecified; Z53.21 Procedure and treatment not carried out due to patient leaving prior to being seen by health care provider; F43.10 Post-traumatic stress disorder, unspecified; B19.20 Unspecified viral hepatitis C without hepatic coma; F17.210 Nicotine dependence, cigarettes, uncomplicated; F31.9 Bipolar disorder, unspecified; Z98.51 Tubal ligation status; Z98.891 History of uterine scar from previous surgery; Z88.8 Allergy status to other drugs, medicaments and biological substances; Z79.899 Other long term (current) drug therapy

== ENCOUNTER 2019-08-25 14:19 | Emergency (ER) | payer MEDICARE, MEDICAID ==
[~2019-08-25] VITALS: Ht 154.9 cm; Wt 56.7 kg
[~2019-08-25 14:19] MED LIST changes: +NEURONTIN600 MG PO; +SEROQUEL25 MG PO; +VALIUM5 MG PO
[2019-08-25] MEDS ORDERED: ATIVAN1 MG PO (15:15)
== END 2019-08-25 15:35 | disposition home or self-care (01) ==
LOC: ED 14:19
DX: F41.9 Anxiety disorder, unspecified (principal); G40.909 Epilepsy, unspecified, not intractable, without status epilepticus; F17.200 Nicotine dependence, unspecified, uncomplicated; Z79.899 Other long term (current) drug therapy; Z88.8 Allergy status to other drugs, medicaments and biological substances

== ENCOUNTER 2019-09-11 09:07 | Inpatient (IN) | payer MEDICARE, MEDICAID ==
[~2019-09-11] VITALS: Ht 152.4 cm; Wt 60.8 kg
[2019-09-11 10:15] VITALS: BP 119/74
--- NOTE | 2019-09-11 10:15 | NUR ---
33 year old FEMALE admitted to room # 530 for stabilization. Reports an addiction to HEROIN last used 3 hours prior to admission. Compliant with admission procedure. Patient denies any anxiety, but is unable to sit still, taps toes to floor continuously, looks about room, unable to focus eyes on nurse during interview. See assessment forms for additional information about patient status.
--- NOTE | 2019-09-11 10:33 | NUR ---
PATIENT MEETS [facility]. CINA=16. PATIENT IS WANTING TO FOLLOW UP WITH AA/NA MEETINGS. [facility] STAFF WILL PROVIDE PATIENT WITH REFERRAL OPTIONS. MERVIN CAIN B.A. VICE PRESIDENT EDUCATION
--- NOTE | 2019-09-11 10:43 | NUR ---
NOTIFIED THAT PT IS ON FLOOR.
[2019-09-11] MEDS ORDERED: OMEPRAZOLE20 M2 PO (10:45)
[2019-09-11] MEDS ORDERED: NAPROSYN500 MG PO (10:45)
[2019-09-11] MEDS ORDERED: PRAZOSIN HYDROCH1 MG PO (10:47)
[2019-09-11] MEDS ORDERED: Depakote250 MG PO (10:50)
--- NOTE | 2019-09-11 10:51 | NUR ---
MED REC UPDATED.
[2019-09-11 11:03] LABS: BASO % 0.5 % (0.0-1.0); EOS # 0.2 10*3/uL (0.0-0.4); EOS % 2.4 % (1.0-4.0); HEMATOCRIT 45.5 % (37.0-47.0); HEMOGLOBIN 15.2 g/dl (12.0-16.0); LYMPH % 30.9 % (27.0-41.0); MEAN CORPUSCULAR HGB 31.7 pg (27.0-31.0); MEAN CORPUSCULAR HGB CONC 33.4 g/dl (33.0-37.0); MEAN PLATELET VOLUME 8.9 fl (9.6-12.3); MONO # 0.4 10*3/uL (0.1-1.0); MONO % 5.8 % (3.0-9.0); NEUT # 3.9 10*3/uL (2.3-7.9); NEUT % 59.9 % (47.0-73.0); PLATELET COUNT AUTOMATED 274 10*3/uL (130-400); RED BLOOD COUNT 4.79 10*6/uL (4.10-5.10); RED CELL DISTRI WIDTH 12.5 % (0-14.5); WHITE BLOOD COUNT 6.6 10*3/uL (4.8-10.8)
[2019-09-11 11:11] LABS: INTERNATIONAL NORM RATIO 0.9 (2.0-3.5)
[2019-09-11 11:17] LABS: ALBUMIN 3.8 gm/dl (3.1-4.5); ALKALINE PHOSPHATASE 89 U/L (45-117); BUN 11 mg/dl (7-24); CHLORIDE 106 mmol/L (98-107); CREATININE 0.72 mg/dL (0.55-1.02); SGOT/AST 113 IU/L (3-35); SGPT/ALT 237 U/L (12-78); SODIUM 140 mmol/L (136-145); TOTAL PROTEIN 7.9 gm/dL (6.4-8.2)
[2019-09-11 11:18] LABS: ETHYL ALCOHOL < 3.0 mg/dl (<3)
[2019-09-11 11:19] LABS: BILIRUBIN NEGATIVE (NEGATIVE); BLOOD NEGATIVE (NEGATIVE); CLARITY SL CLOUDY (CLEAR); COLOR YELLOW (YELLOW); GLUCOSE NEGATIVE (NEGATIVE); KETONE NEGATIVE (NEGATIVE); LEUKO ESTERASE NEGATIVE (NEGATIVE); NITRITE NEGATIVE (NEGATIVE); SPECIFIC GRAVITY 1.015 (1.005-1.030); UROBILINOGEN 0.2 E.U./dl (0.2-1.0)
[2019-09-11 11:20] LABS: BETA-HCG, QUANT < 1.0 mIU/mL (1-3)
[2019-09-11 11:27] LABS: URINE AMPHETAMINES < 1000 (1000ng/ml); URINE BARBITURATES < 200 (200ng/ml); URINE BENZODIAZEPINES > 200 (200ng/ml); URINE CANNABINOIDS (THC) < 50 (50ng/ml); URINE COCAINE > 300 (300ng/ml); URINE METHADONE < 300 (300ng/ml); URINE OPIATES < 300 (300ng/ml)
[2019-09-11 11:33] LABS: URINE PHENCYCLIDINE < 25 (25ng/ml)
[2019-09-11 11:39] LABS: BACTERIA 3+
[2019-09-11 12:00] VITALS: BP 107/65
[2019-09-11 16:00] VITALS: BP 111/71
[2019-09-11 20:00] VITALS: BP 108/67
--- NOTE | 2019-09-11 20:37 | NUR ---
MEDICATED WITH BENADRYL & MOTRIN.
--- NOTE | 2019-09-11 23:29 | NUR ---
MEDICATED WITH TYLENOL & ROBAXIN.
[2019-09-12] VITALS: BP 98/58
[2019-09-12 08:00] VITALS: BP 124/57
--- NOTE | 2019-09-12 09:03 | NUR ---
C/O HEADACHE, RESTLESS ARMS AND LEGS, NAUSEA, ABD CRAMPS, AND REQUESTED A NICOTINE PATCH SINCE SHE REMOVED HERS. GIVEN BENTYL, MOTRIN, NICOTINE PATCH, ROBAXIN, AND ZOFRAN. WILL CONT TO MONITOR. CALL LIGHT IN REACH.
--- NOTE | 2019-09-12 10:03 | NUR ---
PT STATES SHE IS "STILL SICK" AND NOTHING IS HELPING. WILL CONT TO MONITOR.
--- NOTE | 2019-09-12 11:11 | NUR ---
REQUESTED TYLENOL FOR C/O HEADACHE. GIVEN AT THIS TIME. WILL CONT TO MONITOR. CALL LIGHT IN REACH.
[2019-09-12 12:00] VITALS: BP 103/60
--- NOTE | 2019-09-12 12:11 | NUR ---
PT IN BED WITH EYES CLOSED AT THIS TIME. WILL CONT TO MONITOR. CALL LIGHT IN REACH.
--- NOTE | 2019-09-12 13:51 | NUR ---
PATIENT IN TO SPEAK WITH PATIENT. PATIENT IS STILL REQUESTING AA/NA MEETINGS AT THIS TIME. [facility] STAFF WILL PROVIDE PATIENT WITH A LIST IN HER AREA. MERVIN CAIN B.A. SOCIAL SCIENCES LECTURER
--- NOTE | 2019-09-12 15:52 | NUR ---
ROBAXIN, TYLENOL, ZOFRAN AND BENADRYL GIVEN AT THIS TIME FOR C/O NOT FEELING WELL AND PT STATES SHE WANTS EVERYTHING SHE CAN HAVE. PT ALSO ASKED THAT I INSERT AN IV SO SHE CAN GET SOME FLUIDS. PT EDUCATED WHY WE DON'T DO IV ACCESS.
[2019-09-12 16:00] VITALS: BP 102/60
--- NOTE | 2019-09-12 16:04 | NUR ---
[facility] STAFF SPOKE TO PATIENT. PATIENT STATED THAT SHE WANTS TO GO TO [facility] FOR OUTPATENT TREATMENT. VISHNU WILL SET UP APPOINTMENT WITH FACILITY. MERVIN CAIN B.A. SOFTWARE APPLICATIONS ARCHITECT
--- NOTE | 2019-09-12 19:59 | NUR ---
Patient signed out AMA. Patient encouraged to stay and advised of possible consequences of premature discharge. Physician DR. SHEPARD and model and pattern supervisor JUJU ALEX notified. Patient instructed what to do regarding care post-departure from the hospital; emergency phone numbers provided. Patent was accompanied by Jona/NORMAN TUBBS
== END 2019-09-12 20:46 | disposition left against medical advice (07) | DRG 894 ==
LOC: 5E 09:07
PROVIDERS: ADMIT Family Medicine
DX: F11.23 Opioid dependence with withdrawal (principal); R73.9 Hyperglycemia, unspecified; F31.9 Bipolar disorder, unspecified; J06.9 Acute upper respiratory infection, unspecified; R74.0 Nonspecific elevation of levels of transaminase and lactic acid dehydrogenase [LDH]; F41.9 Anxiety disorder, unspecified; B18.2 Chronic viral hepatitis C; Z53.29 Procedure and treatment not carried out because of patient's decision for other reasons; F43.10 Post-traumatic stress disorder, unspecified; G40.909 Epilepsy, unspecified, not intractable, without status epilepticus; R05 Cough; F17.210 Nicotine dependence, cigarettes, uncomplicated; Z71.6 Tobacco abuse counseling; Z98.51 Tubal ligation status; Z98.891 History of uterine scar from previous surgery; Z81.8 Family history of other mental and behavioral disorders; Z88.8 Allergy status to other drugs, medicaments and biological substances; Z79.899 Other long term (current) drug therapy

== ENCOUNTER 2019-10-04 17:00 | Emergency (ER) | payer OTHER, MEDICARE, MEDICAID ==
[~2019-10-04] VITALS: Ht 154.9 cm; Wt 56.7 kg
[~2019-10-04 17:00] MED LIST changes: +Depakote250 MG PO; +NAPROSYN500 MG PO; +OMEPRAZOLE20 M2 PO; +PRAZOSIN HYDROCH1 MG PO
[2019-10-05] MEDS ORDERED: KEFLEX500 M1 PO (09:12)
[2019-10-05] MEDS ORDERED: NORCO 5-325 TA1 EACH PO ×2 (12:45→12:51)
[2019-10-05] MEDS ORDERED: IBUPROFEN600 MG PO (12:45)
[2019-10-05] MEDS ORDERED: SEPTDS PO (12:45)
== END 2019-10-04 17:50 | disposition left against medical advice (07) ==
LOC: ED 17:00
DX: S69.92XD Unspecified injury of left wrist, hand and finger(s), subsequent encounter (principal); Z53.21 Procedure and treatment not carried out due to patient leaving prior to being seen by health care provider; X58.XXXD Exposure to other specified factors, subsequent encounter

== ENCOUNTER 2019-10-05 08:44 | Emergency (ER) | payer OTHER, MEDICARE, MEDICAID ==
[~2019-10-05] VITALS: Ht 154.9 cm; Wt 56.7 kg
[2019-10-05] MEDS ORDERED: KEFLEX500 M1 PO (09:12)
[2019-10-05 10:17] LABS: BASO % 0.5 % (0.0-1.0); EOS # 0.2 10*3/uL (0.0-0.4); EOS % 2.6 % (1.0-4.0); HEMATOCRIT 44.5 % (37.0-47.0); HEMOGLOBIN 14.5 g/dl (12.0-16.0); LYMPH # 2.3 10*3/uL (1.3-4.4); LYMPH % 39.4 % (27.0-41.0); MEAN CELL VOLUME 94.3 fl (81.0-99.0); MEAN CORPUSCULAR HGB 30.7 pg (27.0-31.0); MEAN CORPUSCULAR HGB CONC 32.6 g/dl (33.0-37.0); MEAN PLATELET VOLUME 9.7 fl (9.6-12.3); MONO # 0.5 10*3/uL (0.1-1.0); MONO % 8.8 % (3.0-9.0); NEUT # 2.8 10*3/uL (2.3-7.9); NEUT % 48.5 % (47.0-73.0); PLATELET COUNT AUTOMATED 238 10*3/uL (130-400); RED BLOOD COUNT 4.72 10*6/uL (4.10-5.10); RED CELL DISTRI WIDTH 12.5 % (0-14.5); WHITE BLOOD COUNT 5.8 10*3/uL (4.8-10.8)
[2019-10-05 10:28] LABS: ALBUMIN 3.9 gm/dl (3.1-4.5); ALKALINE PHOSPHATASE 108 U/L (45-117); BUN 12 mg/dl (7-24); CHLORIDE 111 mmol/L (98-107); CREATININE 0.69 mg/dL (0.55-1.02); POTASSIUM 4.2 mmol/L (3.5-5.1); SGOT/AST 31 IU/L (3-35); SGPT/ALT 59 U/L (12-78); SODIUM 141 mmol/L (136-145); TOTAL PROTEIN 7.3 gm/dL (6.4-8.2)
[2019-10-05] MEDS ORDERED: SEPTDS PO (12:45)
[2019-10-05] MEDS ORDERED: IBUPROFEN600 MG PO (12:45)
[2019-10-05] MEDS ORDERED: NORCO 5-325 TA1 EACH PO ×2 (12:45→12:51)
== END 2019-10-05 13:07 | disposition home or self-care (01) ==
LOC: ED 08:44
PROVIDERS: Physician Assistant
DX: S62.637D Displaced fracture of distal phalanx of left little finger, subsequent encounter for fracture with routine healing (principal); Z88.8 Allergy status to other drugs, medicaments and biological substances; W23.0XXD Caught, crushed, jammed, or pinched between moving objects, subsequent encounter

== ENCOUNTER 2019-11-23 07:46 | Inpatient (IN) | payer MEDICARE, MEDICAID ==
[~2019-11-23] VITALS: Ht 157.4 cm; Wt 60.5 kg
[2019-11-23] VITALS (7 sets, daily range): BP systolic 97–125; BP diastolic 51–90
[~2019-11-23 07:46] MED LIST changes: +IBUPROFEN600 MG PO; +KEFLEX500 M1 PO; +NORCO 5-325 TA1 EACH PO; +SEPTDS PO
[2019-11-23 10:14] LABS: BASO % 0.2 % (0.0-1.0); EOS # 0.2 10*3/uL (0.0-0.4); HEMATOCRIT 46.8 % (37.0-47.0); HEMOGLOBIN 15.4 g/dl (12.0-16.0); LYMPH # 2.2 10*3/uL (1.3-4.4); LYMPH % 22.9 % (27.0-41.0); MEAN CELL VOLUME 94.9 fl (81.0-99.0); MEAN CORPUSCULAR HGB 31.2 pg (27.0-31.0); MEAN CORPUSCULAR HGB CONC 32.9 g/dl (33.0-37.0); MEAN PLATELET VOLUME 9.4 fl (9.6-12.3); MONO # 0.6 10*3/uL (0.1-1.0); NEUT # 6.5 10*3/uL (2.3-7.9); NEUT % 68.7 % (47.0-73.0); PLATELET COUNT AUTOMATED 235 10*3/uL (130-400); RED BLOOD COUNT 4.93 10*6/uL (4.10-5.10); RED CELL DISTRI WIDTH 12.7 % (0-14.5); WHITE BLOOD COUNT 9.5 10*3/uL (4.8-10.8)
[2019-11-23 10:29] LABS: ALBUMIN 4.2 gm/dl (3.1-4.5); ALKALINE PHOSPHATASE 73 U/L (45-117); BUN 11 mg/dl (7-24); CHLORIDE 108 mmol/L (98-107); CREATININE 0.72 mg/dL (0.55-1.02); ETHYL ALCOHOL < 3.0 mg/dl (<3); POTASSIUM 4.1 mmol/L (3.5-5.1); SGOT/AST 31 IU/L (3-35); SGPT/ALT 65 U/L (12-78); SODIUM 137 mmol/L (136-145); TOTAL PROTEIN 8.1 gm/dL (6.4-8.2)
[2019-11-23 10:42] LABS: BETA-HCG, QUANT < 1.0 mIU/mL (1-3)
[2019-11-23 10:47] LABS: BILIRUBIN NEGATIVE (NEGATIVE); CLARITY SL CLOUDY (CLEAR); COLOR YELLOW (YELLOW); GLUCOSE NEGATIVE (NEGATIVE); KETONE NEGATIVE (NEGATIVE); SPECIFIC GRAVITY 1.025 (1.005-1.030)
[2019-11-23 10:48] LABS: BLOOD NEGATIVE (NEGATIVE); LEUKO ESTERASE NEGATIVE (NEGATIVE); NITRITE NEGATIVE (NEGATIVE); PH 6.5 (5.0-9.0); UROBILINOGEN 0.2 E.U./dl (0.2-1.0)
[2019-11-23 11:04] LABS: URINE AMPHETAMINES < 1000 (1000ng/ml); URINE BARBITURATES < 200 (200ng/ml); URINE BENZODIAZEPINES > 200 (200ng/ml); URINE CANNABINOIDS (THC) < 50 (50ng/ml); URINE COCAINE < 300 (300ng/ml); URINE METHADONE < 300 (300ng/ml); URINE OPIATES < 300 (300ng/ml)
[2019-11-23 11:06] LABS: URINE PHENCYCLIDINE < 25 (25ng/ml)
[2019-11-23 11:07] LABS: BACTERIA 2+; EPITHELIAL CELLS TNTC
[2019-11-23] MEDS ORDERED: DIAZEPAM5 MG PO (11:52)
[2019-11-23] MEDS ORDERED: GABAPENTIN600 MG PO (11:53)
[2019-11-23] MEDS ORDERED: QUETIAPINE FUMA50 M1 PO (11:58)
[2019-11-23] MEDS ORDERED: OMEPRAZOLE MAGN20 MG PO (11:58)
[2019-11-24] VITALS: BP 102/56
[2019-11-24 08:00] VITALS: BP 106/61
== END 2019-11-24 08:25 | disposition left against medical advice (07) | DRG 894 ==
LOC: ED 07:46 → 5E 09:08 → EDHOLD 09:08 → 5E 09:46
PROVIDERS: Internal Medicine; ADMIT Internal Medicine
DX: F11.23 Opioid dependence with withdrawal (principal); Z53.29 Procedure and treatment not carried out because of patient's decision for other reasons; F41.9 Anxiety disorder, unspecified; B19.20 Unspecified viral hepatitis C without hepatic coma; G40.909 Epilepsy, unspecified, not intractable, without status epilepticus; F43.10 Post-traumatic stress disorder, unspecified; F17.210 Nicotine dependence, cigarettes, uncomplicated; G47.00 Insomnia, unspecified; K21.9 Gastro-esophageal reflux disease without esophagitis; G25.81 Restless legs syndrome; F31.9 Bipolar disorder, unspecified; Z88.8 Allergy status to other drugs, medicaments and biological substances; Z98.51 Tubal ligation status; Z81.8 Family history of other mental and behavioral disorders